=== PATIENT | female | born 1990 | race African-American/Black ===

== ENCOUNTER 2016-08-16 18:44 | Emergency (ER) | payer OTHER ==
[~2016-08-16 18:44] MED LIST: FISH OIL1000 MG PO; FLU VACCINE 0.0.5 ML IM; MULTIVITAMIN1 TAB PO; ORTHO EVRA TOP; VITAMIN C500 M3 PO; VITAMIN D1000 IU PO
--- NOTE | 2016-08-16 20:04 | ED GENERAL ADULT ---
History of Present Illness General Chief Complaint: General Adult Stated Complaint: PT WAS CLOSE TO SYNCOPE Source: patient Exam Limitations: no limitations Vital Signs & Intake/Output Vital Signs & Intake/Output Vital Signs Date Time Temp Pulse Resp B/P Pulse O2 O2 Flow FiO2 Ox Delivery Rate 08/160 97.6 67 18 106/74 97 08/16 1919 99.7 74 16 103/67 98 Room Air Room Air Allergies Coded Allergies: NO KNOWN ALLERGIES (05/30/12) Reconcile Medications Lactobacillus Acidophilus (Probiotic) 10 BILLION CELL CAPSULE 1 CAP PO DAILY PROBIOTIC (Reported) Multivitamin (Multi-Day Vitamins) 1 EACH TABLET 1 TAB PO DAILY SUPPLEMENT ( Reported) Multivitamin With Minerals (Hair, Skin & Nails) 1 EACH TABLET 1 TAB PO DAILY SUPPLEMENT (Reported) [place]-3 Fatty Acids (Fish Oil) (Unknown Strength) CAPSULE (Unknown Dose) PO DAILY SUPPLEMENT (Reported) Triage Note: PT TO TRIAGE AFTER FEELING LIGHTHEEAD DIAPHORETIC AND NAUSEOUS AT HER HAIR SALON. WHEN SHE STARTED TO DRIVE SHE BEGAN TO HAVE CHEST PAIN. STATES IT IS CURRENTLY 8/10 AND SHOOTING. STATES SHE ALSO NOW HAS LOWER ABD PAIN. PT HAD CP LAST FRIDAY AND HAS HAD GENERNAL MALAISE SINCE Triage Nurses Notes Reviewed? yes Onset: Abrupt Duration: minute(s):, gone now Timing: single episode today Severity: moderate, severe : No Patient currently breastfeeds: No HPI: Patient presents for evaluation of chest abdominal and back pain after having a near syncopal episode while getting her nails done. The incident occurred shortly before arrival. She states that during the episode, she felt dizzy and sweaty. This was followed by chest back and abdominal pain. She denies having lost consciousness. She denies any prior episodes. The pains are described as moderate to severe sharp shooting stabbing pains that are intermittent currently (they were consistent prior). She states that the pains worsened with movement and she feels better lying in a position. Past History Travel History Traveled to [place] past 21 day No Medical History Any Pertinent Medical History? see below for history Neurological: NONE EENT: NONE Cardiovascular: NONE Respiratory: NONE Gastrointestinal: NONE Hepatic: NONE Renal: NONE Musculoskeletal: NONE Psychiatric: NONE Endocrine: NONE Blood Disorders: NONE Cancer(s): NONE CARPENTER GENERAL/Reproductive: NONE Surgical History Surgical History: non-contributory Psychosocial History What is your primary language Czech Tobacco Use: Never used ETOH Use: denies use Illicit Drug Use: denies illicit drug use Family History Hx Contributory? No Review of Systems Review of Systems Constitutional: Reports: no symptoms. EENTM: Reports: no symptoms. Respiratory: Reports: no symptoms. Cardiovascular: Reports: no symptoms. GI: Reports: no symptoms. Genitourinary: Reports: no symptoms. Musculoskeletal: Reports: no symptoms. Skin: Reports: no symptoms. Neurological/Psychological: Reports: no symptoms. Hematologic/Endocrine: Reports: no symptoms. Immunologic/Allergic: Reports: no symptoms. All Other Systems: Reviewed and Negative Physical Exam Physical Exam General Appearance: SEE BELOW Comments: Gen.: Well-nourished, well-developed, no acute respiratory distress. Head: Normocephalic, atraumatic. Eyes: Normal inspection bilaterally Ears: Normal inspection bilaterally Nose: Normal inspection Throat/mouth : Moist mucosa Neck: Supple, full range of motion, no goiter, no carotid bruits Heart: Regular rate and rhythm, no murmurs rubs or gallops, normal PMI Lungs: Clear to auscultation bilaterally with normal air entry Chest: Nontender Back: Normal range of motion Abdomen: Soft, nontender, nondistended, normal bowel sounds Extremities: Normal range of motion grossly, equal radial pulses, no cyanosis clubbing or edema Neurologic: Cranial nerves grossly intact, speech is clear Skin: warm and dry Psychiatric: Calm, cooperative, no apparent delusions or hallucinations Core Measures ACS in differential dx? No CVA/TIA Diagnosis: No Severe Sepsis Present: No Septic Shock Present: No Progress Differential Diagnoses I considered the following diagnoses in my evaluation of the patient: Hypoglycemia (but the patient states she was eating on a regular basis), dehydration (patient states she has maintained a normal fluid intake), dysrhythmia (the patient has no known history of cardiac disease and her EKG was normal), electrolyte abnormality (patient's electrolytes are normal), CVA/ vascular abnormality (the patient has no risk factors). Plan of Care: Orders Procedure Date/time Status URINE 08/16 2002 Complete URINALYSIS 08/16 2002 Complete TROPONIN LEVEL 08/16 2002 Complete MAGNESIUM 08/16 2002 Complete LIPASE 08/16 2002 Complete COMPREHENSIVE METABOLIC PANEL 08/16 2002 Complete CBC WITHOUT DIFFERENTIAL 08/16 2002 Complete EKG 08/16 192 Active Laboratory Tests 08/16/16 2020: Anion Gap 10, Estimated GFR > 60, BUN/Creatinine Ratio 18.3, Glucose 79, Calcium 9.9, Magnesium 1.5 L, Total Bilirubin 0.4, AST 27, ALT 41, Alkaline Phosphatase 61, Troponin I < 0.01, Total Protein 8.6 H, Albumin 4.6, Globulin 4.0, Albumin/ Globulin Ratio 1.2, Lipase 234, CBC w Diff NO MAN DIFF REQ, RBC 4.17 L, MCV 88.9, MCH 28.8, RDW 14.0, MPV 7.7, Gran % 56.2, Lymphocytes % 37.8, Monocytes % 3.9, Eosinophils % 1.6, Basophils % 0.5, Absolute Granulocytes 4.3, Absolute Lymphocytes 2.9, Absolute Monocytes 0.3, Absolute Eosinophils 0.1, Absolute Basophils 0, PUBS MCHC 32.4 L, Urine Color YEL, Urine Clarity CLEAR, Urine pH 6.0, Ur Specific Ewing 1.025, Urine Protein NEG, Urine Ketones NEG, Urine Nitrite NEG, Urine Bilirubin NEG, Urine Urobilinogen 0.2, Ur Leukocyte Esterase NEG, Ur Microscopic EXAM NOT REQUIRED, Urine Hemoglobin NEG, Urine Glucose NEG, Urine Test NEGATIVE Diagnostic Imaging: Discussed w/RAD: Radiology Read. CXR Impression: no acute abnormality Initial ED EKG: NSR, rate (63) Departure Departure Disposition: HOME OR SELF CARE Condition: Stable Clinical Impression Primary Impression: Near syncope Referrals: STEVO DAVILA,MARQUISE Duarte (PCP/Family) Additional Instructions: The cause of your near fainting episode is unclear at this point. Please follow -up with your primary care physician on Friday and return immediately if any further episodes. Please note that there might be incidental findings in your evaluation that are unrelated to the current emergency department visit. Please notify your primary care doctor about this emergency department visit in order to obtain and review all of the testing performed so that these incidental findings can be monitored as needed. If you had an x-ray performed, please understand that some fractures may not be seen on the initial set of x-rays. If your symptoms persist you might need a repeat set of x-rays to check for such a fracture. If you had a laceration evaluated, please understand that foreign bodies such as glass or wood may not be visible to the naked eye or on plain x-rays. If the wound becomes red, swollen, increasingly more painful or if there is any drainage from the wound, please have it reevaluated by a physician for the possibility of a retained foreign body. Thank you for choosing the [facility] for your care. It was a pleasure to serve you today. Jose Miranda M.D. [facility] Departure Forms: Customer Survey General Discharge Information Critical Care Note Critical Care Note Critical Care Time: non-applicable
[2016-08-16 20:26] LABS: ABSOLUTE BASOPHIL COUNT 0 /CUMM (0.0-0.2); ABSOLUTE EOSINOPHIL COUNT 0.1 /CUMM (0.0-0.7); ABSOLUTE GRANULOCYTE CT 4.3 /CUMM (1.4-6.5); ABSOLUTE LYMPH COUNT 2.9 /CUMM (1.2-3.4); ABSOLUTE MONOCYTE COUNT 0.3 /CUMM (0.10-0.60); BASOPHIL % 0.5 % (0.0-2.0); EOSINOPHIL % 1.6 % (0-5); GRANULOCYTE % 56.2 % (42.2-75.2); MEAN CORPUSCULAR HGB 28.8 PG (27.0-31.0); MEAN CORPUSCULAR HGB CONC 32.4 G/DL (33.0-37.0); MEAN CORPUSCULAR VOLUME 88.9 FL (81.0-99.0); MEAN PLATELET VOLUME 7.7 FL (7.4-10.4); PLATELET COUNT 229 /CUMM (130-400); RED BLOOD CELL CT 4.17 /CUMM (4.20-5.40); WHITE BLOOD CELL COUNT 7.6 /CUMM (4.8-10.8)
[2016-08-16] MEDS ORDERED: MULTI-DAY VITA1 EACH PO (20:37)
[2016-08-16] MEDS ORDERED: PROBIOTIC1 EACH PO (20:38)
[2016-08-16] MEDS ORDERED: FISH OIL300 MG PO (20:38)
[2016-08-16] MEDS ORDERED: HAIR, SKIN & N1 EACH PO (20:38)
--- NOTE | 2016-08-16 21:08 | RADIOLOGY REPORT ---
EXAMINATION: CHEST 2 VIEWS CLINICAL INFORMATION: Syncope. COMPARISON: None. TECHNIQUE: PA and lateral views of the chest were obtained. FINDINGS: The cardiac silhouette is not enlarged. The mediastinal and hilar contours are unremarkable. There are neither pleural effusions nor pneumothoraces. There are no consolidations. The osseous structures are unremarkable. IMPRESSION: No evidence for acute disease.
[2016-08-16 21:30] VITALS: BP 106/74
== END 2016-08-16 21:59 ==
LOC: ERH 18:44
PROVIDERS: Emergency Medicine
DX: R55 Syncope and collapse (principal); R07.9 Chest pain, unspecified; R10.9 Unspecified abdominal pain; M54.9 Dorsalgia, unspecified
CPT/HCPCS: 81003; 81025; 93005; 93010; 96372; J1885